=== PATIENT | male | born 1985 | race African-American/Black ===

== ENCOUNTER 2024-09-25 00:14 | Emergency (ER) | payer SELFPAY ==
[~2024-09-25] VITALS: Ht 172.7 cm; Wt 82.0 kg
[2024-09-25 00:16] VITALS: BP 135/88; PULSE 65; RESP 12; TEMP 98.7; O2SAT 99
[2024-09-25 00:47] LABS: BASOPHILS % 0.9 % (0.0-2.0); EOSINOPHILS % 1.7 % (0.0-5.0); HEMATOCRIT. 39.4 % (42.0-52.0); HEMOGLOBIN. 13.4 g/dL (14.0-18.0); LYMPHOCYTES % 32.9 % (20.0-50.0); MEAN CORPUSCULAR HEMOGLOBIN 31.2 pg (28.0-32.0); MEAN CORPUSCULAR HGB CONC 33.9 g/dL (31.0-37.0); MEAN CORPUSCULAR VOLUME 91.9 fL (80.0-94.0); MEAN PLATELET VOLUME 7.6 fl (7.4-10.4); MONOCYTES % 9.5 % (2.0-8.0); PLATELET 249 x1000/uL (130-400); RED BLOOD CELL COUNT 4.28 mill/uL (4.7-6.1); RED CELL DISTRIBUTION WIDTH 13.4 % (11.6-14.6); WHITE BLOOD COUNT 6.2 x1000/uL (4.5-11.0)
[2024-09-25 00:51] LABS: CHLORIDE 106 mEq/L (98-107); POTASSIUM 3.8 mEq/L (3.5-5.1); SODIUM 140 mEq/L (136-145)
[2024-09-25 00:52] LABS: CALCIUM 9.5 mg/dL (8.7-10.4); CARBON DIOXIDE 27 mEq/L (21-32)
[2024-09-25 00:57] LABS: GLUCOSE 107 mg/dL (70-105); UREA NITROGEN BLOOD 14 mg/dL (9-23)
[2024-09-25 00:59] LABS: ALANINE AMINOTRANSFERASE 22 IU/L (10-49); ALBUMIN 4.4 g/dL (3.2-4.8); AMYLASE 58 IU/L (30-118); ASPARTATE AMINOTRANSFERASE 26 IU/L (<34); BILIRUBIN DIRECT 0.1 mg/dL (<=3.0); BILIRUBIN TOTAL 0.5 mg/dL (0.1-1.0)
[2024-09-25 01:00] LABS: PROTEIN TOTAL 6.7 g/dL (6.0-8.3)
[2024-09-25 01:15] LABS: ETHANOL BLOOD < 10 mg/dL (<10)
[2024-09-25 01:30] LABS: INR 0.9; PROTHROMBIN TIME 10.2 sec (9.6-11.0)
[2024-09-25] MEDS: MAGNESIUM/ALUMINUM HYDROXIDE/SIMETHICONE 30ML UDC PO ONE (01:49)
[2024-09-25] MEDS: ONDANSETRON HCL 4MG/2ML INJ IV ONE (01:49)
[2024-09-25] MEDS: PANTOPRAZOLE SODIUM 40 MG/VIAL IV ONE (01:49)
[2024-09-25] MEDS ORDERED: PROT40 MT (02:21)
[2024-09-25] MEDS ORDERED: ONDA4TAB50 MT (02:21)
[2024-09-25] MEDS ORDERED: MAG355OR21 MT (02:21)
== END 2024-09-25 02:58 | disposition home or self-care (01) ==
LOC: ER 00:25
DX: K29.70 Gastritis, unspecified, without bleeding (principal); Z79.899 Other long term (current) drug therapy
CPT/HCPCS: 80076; 80048; 80320; 82150; 83690; 85025; 85610; 36415; 76705; 96374; 96375; 99285; J2405; J2470; Z7610 ×4; G0480